=== PATIENT | female | born 1980 | race Caucasian/White ===

== ENCOUNTER 2020-07-31 10:50 | Outpatient (CLI) | payer OTHER, SELFPAY | END 2020-07-31 10:51 | disposition home or self-care (01) | LOC: ANHCOVIDVC 10:50 | PROVIDERS: PCP Family Medicine | DX: Z23 Encounter for immunization (principal) | CPT/HCPCS: 0001A; 91300 ==

== ENCOUNTER 2020-08-21 10:48 | Outpatient (CLI) | payer OTHER, SELFPAY | END 2020-08-21 10:49 | disposition home or self-care (01) | LOC: ANHCOVIDVC 10:48 | PROVIDERS: PCP Family Medicine | DX: Z23 Encounter for immunization (principal) | CPT/HCPCS: 0002A; 91300 ==

== ENCOUNTER 2020-10-29 10:33 | Emergency (ER) | payer OTHER, SELFPAY ==
[2020-10-29] VITALS (23 sets, daily range): BP systolic 102–123; BP diastolic 69–85; PULSE 74–98; RESP 12–20; TEMP 36.2; O2SAT 96–100
--- NOTE | ~2020-10-29 | XR_ITS ---
EXAMINATION: XR chest 2V EXAM DATE: 10/29/2020 11:58 INDICATION: Chest pain and shortness of breath. TECHNIQUE: Frontal and lateral projections of the chest obtained and reviewed. Comparison is made to prior examination from 07/24/2015. FINDINGS: The lungs are clear. There are no pleural effusions. The cardiomediastinal silhouette is within normal limits. There is no pneumothorax suspected. The bones and soft tissues are unremarkab le. IMPRESSION: No acute cardiopulmonary findings. Reviewed, dictated and finalized at location B.
--- NOTE | 2020-10-29 10:38 | ECG_ITS ---
Measurements Intervals [place] Rate: 88 P: 30 IN: 158 QRS: 21 QRSD: 85 T: 47 QT: 354 QTc: 428 Interpretive Statements SINUS RHYTHM NORMAL ECG Electronically Signed On 10-29-2020 15:53:45 CDT by Cristofer Casas D.O.
[2020-10-29 11:06] LABS: Basophils Percent Auto 0.4 % (0.2-1.2); Eosinophils Absolute Auto 0.3 K/mm3 (0-0.3); Eosinophils Percent Auto 3.1 % (0-4.4); Hematocrit 44.1 % (37.0-47.0); Hemoglobin 15.1 g/dL (12.0-15.0); Immature Granulocyte Absolute 0.01 K/mm3 (0.00-0.031); Immature Granulocyte Percent A 0.1 % (0-0.5); Lymphocytes Absolute Auto 2.82 K/mm3 (0.9-3.2); Mean Corpuscular HGB Conc 34.2 g/dl (32-36); Mean Corpuscular Hemoglobin 29.4 pg (26-34); Mean Platelet Volume 9.5 fl (7.4-10.4); Monocytes Absolute Auto 0.8 K/mm3 (0.1-0.6); Monocytes Percent Auto 8.3 % (2.6-8.5); Neutrophils Absolute Auto 5.5 K/mm3 (1.3-6.7); Neutrophils Percent Auto 58.1 % (45.5-73.1); Platelet Count Result 384 k/mm3 (150-375); Red Blood Count 5.13 M/mm3 (4.2-5.4); Red Cell Distribution Width 12.4 % (11.5-14.5); White Blood Count 9.4 K/mm3 (4.5-10.0)
[2020-10-29 11:19] LABS: Anion Gap 7 mmol/L (8-16); Blood Urea Nitrogen 14 mg/dL (7-17); Calcium 9.5 mg/dL (8.4-10.2); Carbon Dioxide 29 mmol/L (22-30); Chloride 102 mmol/L (98-107); Estimated CRCL calculation 94 ml/min; Estimated Glomerular Filt Rate > 60; Glucose 109 mg/dL (65-105); Potassium 4.1 mmol/L (3.4-5.0); Sodium 138 mmol/L (137-145)
[2020-10-29 11:20] LABS: Prothrombin Time 13.3 Seconds (11.1-14.7)
[2020-10-29 11:21] LABS: Partial Thromboplastin Time 34.9 SECONDS (22.3-36.8)
[2020-10-29 11:31] LABS: Troponin I < 0.012 ng/mL (0.000-0.034)
[2020-10-29] MEDS: ASPIRIN 81 MG CHEWABLE TABLET 324 MG PO (12:07)
[2020-10-29 12:51] LABS: NT Pro B Type Natriuretic Pept < 11 pg/mL (5-100)
[2020-10-29 14:02] LABS: Troponin I < 0.012 ng/mL (0.000-0.034)
--- NOTE | 2020-10-29 14:21 | ED.SOB ---
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 for which she is seen at [facility] Because of this she has frequent issues with muscle twitching and discomfort Last night she had an episode somewhat more severe than she generally has and then this morning she had some chest heaviness and tightness which she does not usually have She effectively has no cardiac risk factors otherwise may have high triglycerides does not have high blood pressure does not smoke does not have diabetes Her discomfort is right-sided, aggravated by palpation and movement and deep breathing, does not radiate, and has been there for hours Related Data Home Medications Medication Instructions Recorded Confirmed pregabalin 100 mg capsule 100 mg PO QID cap 03/06/20 08/15/20 prednisone 50 mg tablet 50 mg PO DAILY 07/07/20 08/15/20 Allergies Allergy/AdvReac Type Severity Reaction Status Date / Time erythromycin base Allergy Unknown Rash Verified 08/11/20 08:33 Review of Systems Review of Systems: All systems reviewed & are unremarkable except as noted in HPI and below Constitutional: Constitutional: Reports no additional constitutional complaints, Denies chills, Denies fever(s) and Denies headache(s) Eyes: Eyes: Reports no additional eye complaints and Denies change in vision ENT: Denies headache(s) and Denies sore throat Cardiovascular: Cardiovascular: Reports chest pain, Denies radiating jaw, neck or arm pain and Denies dyspnea Respiratory: Respiratory: Denies cough and Denies dyspnea Gastrointestinal: Gastrointestinal: Denies abdominal pain, Denies diarrhea and Denies vomiting Genitourinary: Genitourinary: Denies urinary frequency and Denies dysuria Musculoskeletal: Musculoskeletal: Reports myalgias, Denies deformity, Denies arthralgias, Denies joint swelling, Reports muscle cramps and Denies numbness Integumentary/Breasts: Skin/Breast: Denies rash and Denies wounds Neurologic: Denies headache(s), Denies focal weakness and Denies numbness Psychiatric: Psychiatric: Reports no additional psychiatric complaints Endocrine: Endocrine: Reports no additional endocrine complaints Hematologic/Lymphatic: Hematologic/Lymphatic: Reports no additional hematologic/lymphatic complaints Allergic/Immunologic: Allergic/Immunologic: Reports no additional allergic/immunologic complaints [facility] Past Medical History Medical History IBS (irritable bowel syndrome) Idiopathic small fiber peripheral neuropathy Long-term current use of steroids MDD (major depressive disorder) Myopathy Palpitations Surgical History Surgical History H/O cervical spine surgery H/O colonoscopy H/O: Family History Family History Mother Hypertension Asthma Sibling Asthma Grandparent Carcinoma of colon Family history of malignant neoplasm of ovary Father Family history of rheumatoid arthritis Social History Social History (Updated 08/11/20 @ 08:35 by Alla Rucker) Social History: Smoking status: Never smoker Second hand tobacco smoke exposure: No Alcohol intake: former Substance use: never Substance use type: does not use Additional living arrangements comments: Pt and her daughter live together. Gender identity (if verbalized by the patient): Female Exam Const: General: cooperative, no acute distress and alert Orientation/consciousness: patient oriented x3 (alert) HENMT: Head: normal to inspection, normocephalic and atraumatic Ears: external ears meghan
== END 2020-10-29 15:01 | disposition home or self-care (01) ==
PROVIDERS: Emergency Medicine; Emergency Provider Emergency Medicine; PCP Family Medicine
DX: R07.89 Other chest pain (principal); K58.9 Irritable bowel syndrome, unspecified; G60.8 Other hereditary and idiopathic neuropathies; E88.49 Other mitochondrial metabolism disorders
CPT/HCPCS: 36415; 71046; 80048; 83880; 84484; 85025; 85610; 85730; 93005; 99284; A9270

== ENCOUNTER 2021-11-25 19:14 | Emergency (ER) | payer OTHER, SELFPAY ==
[2021-11-25 19:21] VITALS: BP 82/63; PULSE 101; RESP 12; TEMP 36.5; O2SAT 100
--- NOTE | 2021-11-25 19:25 | ED.URI ---
HPI - URI/Sore Throat General Chief Complaint: Upper Respiratory Infection Stated Complaint: fatigued, body aches Time Seen by Provider: 11/25/21 19:30 Source: patient and RN notes reviewed Mode of arrival: ambulatory Limitations: no limitations History of Present Illness HPI Narrative: 41-year-old female presents with concern for fatigue, increased body aches that started on Monday. She reports she has an atrial septal defect and a mitochondrial defect so she has typical aches and pains for which she sees pain management. She reports she is having worsening pain however she is most concerned of her fatigue. Reports she has been falling asleep at work. She denies nasal congestion, rhinorrhea, sore throat, cough, headache. She denies nausea vomiting or diarrhea. She reports she has been drinking plenty of water and is urinating normally. She reports she took 2 COVID tests which were negative. MD elicited complaint: other (Fatigue) Related Data Home Medications Medication Instructions Recorded Confirmed pregabalin 100 mg capsule (Lyrica) 100 mg PO QID 03/06/20 08/15/20 naltrexone 11/25/21 riboflavin (vitamin B2) 11/25/21 Allergies Allergy/AdvReac Type Severity Reaction Status Date / Time erythromycin base Allergy Unknown Rash Verified 08/11/20 08:33 Review of Systems Review of Systems: CONSTITUTIONAL: Reports malaise, fatigue. Denies chills, sweats, or fever. EYES: Denies visual changes, redness, or discharge. ENT: Denies rhinorrhea, congestion, sinus pain, otalgia and sore throat. CARDIOVASCULAR: Denies chest pain, palpitations, or edema. RESPIRATORY: Denies cough. Denies dyspnea. GASTROINTESTINAL: Denies abdominal pain, nausea, vomiting, diarrhea SKIN: Denies rash or itching. MUSCULOSKELETAL: Reports myalgia. NEUROLOGIC: Denies headache. All systems reviewed & are unremarkable except as noted in HPI and below PMFSH Past Medical History Medical History IBS (irritable bowel syndrome) Idiopathic small fiber peripheral neuropathy Long-term current use of steroids MDD (major depressive disorder) Myopathy Palpitations Surgical History Surgical History H/O cervical spine surgery H/O colonoscopy H/O: Family History Family History Mother Hypertension Asthma Sibling Asthma Grandparent Carcinoma of colon Family history of malignant neoplasm of ovary Father Family history of rheumatoid arthritis Social History Social History (Updated 08/11/20 @ 08:35 by Alla Rucker) Social History: Smoking status: Never smoker Second hand tobacco smoke exposure: No Alcohol intake: former Alcohol use details: rarely Substance use: never Substance use type: does not use Additional living arrangements comments: Pt and her daughter live together. Gender identity (if verbalized by the patient): Female Sexual Orientation (if Verbalized by the Patient): Straight or Heterosexual Comments At time of signature, agree with nursing past medical, surgical, social and family history. There is no relevant family history pertinent to the presenting complaint Exam Narrative: GENERAL: Nontoxic appearing and in no acute distress. HEAD: Normocephalic EYES: PERRLA, conjunctivae clear ENT: Nares clear. Mucous membranes moist. NECK: Supple. No lymphadenopathy CHEST: Clear to auscultation, breath sounds equal. No wheezing, rhonchi, rales, or stridor. No respiratory distress, speaks in full sentences. HEART: Fast rate and regular rhythm. No murmur heard. SKIN: Warm, dry, no rash. NEURO: Alert and oriented x3. PSYCH: Normal mood and affect Course Course Emergency Course: Patient is aware of, understands and agrees to be seen in the emergency department. EMS offered, patient refused, patient agrees to proceed directly to the emerg
[2021-11-25 19:26] VITALS: BP 82/63; PULSE 101; RESP 12; TEMP 36.5; O2SAT 100
== END 2021-11-25 19:53 | disposition short-term general hospital (02) ==
PROVIDERS: Emergency Provider Nurse Practitioner
DX: I95.9 Hypotension, unspecified (principal); G62.9 Polyneuropathy, unspecified
CPT/HCPCS: 99212; G0463

== ENCOUNTER 2021-11-25 20:08 | Emergency (ER) | payer OTHER, SELFPAY ==
[2021-11-25] VITALS (11 sets, daily range): BP systolic 111–128; BP diastolic 65–84; PULSE 81–94; RESP 12–20; TEMP 36.6; O2SAT 95–100
[2021-11-25] MEDS: KETOROLAC 30 MG/ML VIAL (*BKC) IV PUSH (21:02)
[2021-11-25 21:08] LABS: Basophils Percent Auto 0.3 % (0.2-1.2); Eosinophils Absolute Auto 0.4 K/mm3 (0-0.3); Eosinophils Percent Auto 3.4 % (0-4.4); Hematocrit 39.2 % (37.0-47.0); Hemoglobin 13.3 g/dL (12.0-15.0); Immature Granulocyte Absolute 0.03 K/mm3 (0.00-0.031); Immature Granulocyte Percent A 0.2 % (0-0.5); Lymphocytes Absolute Auto 3.92 K/mm3 (0.9-3.2); Lymphocytes Percent Auto 32.3 % (18.3-44.2); Mean Corpuscular HGB Conc 33.9 g/dl (32-36); Mean Corpuscular Volume 88.3 fl (80-100); Mean Platelet Volume 9.6 fl (7.4-10.4); Monocytes Percent Auto 8.1 % (2.6-8.5); Neutrophils Absolute Auto 6.8 K/mm3 (1.3-6.7); Neutrophils Percent Auto 55.7 % (45.5-73.1); Platelet Count Result 338 k/mm3 (150-375); Red Blood Count 4.44 M/mm3 (4.2-5.4); Red Cell Distribution Width 13.2 % (11.5-14.5); White Blood Count 12.2 K/mm3 (4.5-10.0)
[2021-11-25 21:31] LABS: Alanine Aminotransferase 16 U/L (6-35); Albumin Level 4.1 g/dL (3.5-5.1); Alkaline Phosphatase 99 U/L (38-126); Anion Gap 6 mmol/L (8-16); Aspartate Amino Transferase 23 U/L (14-36); Bilirubin,Total 0.2 mg/dL (0.2-1.3); Blood Urea Nitrogen 16 mg/dL (7-17); Calcium 8.7 mg/dL (8.4-10.2); Carbon Dioxide 28 mmol/L (22-30); Chloride 102 mmol/L (98-107); Creatine Kinase 71 U/L (30-135); Estimated CRCL calculation 83 ml/min; Estimated Glomerular Filt Rate > 60; Glucose 94 mg/dL (65-110); Potassium 3.9 mmol/L (3.4-5.0); Sodium 136 mmol/L (137-145)
[2021-11-25 21:37] LABS: CRP 1.2 mg/dL (<1.0)
[2021-11-25 21:55] LABS: Add Urine Microscopic? YES; Appearance Urine Slightly Cloudy (Clear); Bilirubin Urine Negative (Negative); Blood Urine Negative (Negative); Color Urine Yellow (Yellow); Glucose Urine UA Negative (Negative); Ketones Urine Negative (Negative); Leukocyte Esterase Ur Negative LEU/UL (Negative); Nitrate Urine Negative (Negative); Protein Urine Negative (Negative)
[2021-11-25 21:57] LABS: Bacteria Urine Trace /hpf; Mucus Urine Rare /lpf; RBC Urine 0-2 /hpf (0-2); Squamous Epithelial Cell Urine Moderate /hpf (Few); WBC Urine 0-3 /hpf
--- NOTE | 2021-11-25 22:23 | ED.WEAKNESS ---
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 Patient states that for past few days she feels as though she has no energy and has been dragging herself. She denies any fever or chills. No history of nausea, vomiting or abdominal pain. She also states that she checked for COVID x2 at home and both her tests were negative Complaint: generalized weakness Onset (ago): week(s) (1) Location: generalized Severity: moderate Associated symptoms: denies other symptoms Related Data Home Medications Medication Instructions Recorded Confirmed pregabalin 100 mg capsule (Lyrica) 100 mg PO QID 03/06/20 08/15/20 naltrexone 11/25/21 riboflavin (vitamin B2) 11/25/21 Allergies Allergy/AdvReac Type Severity Reaction Status Date / Time erythromycin base Allergy Unknown Rash Verified 11/25/21 20:58 Review of Systems Review of Systems: All systems reviewed & are unremarkable except as noted in HPI and below Constitutional: Constitutional: Reports no additional constitutional complaints Eyes: Eyes: Reports no additional eye complaints ENT: Reports system reviewed and no additional complaints, except as documented Cardiovascular: Cardiovascular: Reports no additional cardiovascular complaints Respiratory: Respiratory: Reports no additional respiratory complaints Gastrointestinal: Gastrointestinal: Reports no additional gastrointestinal complaints Musculoskeletal: Musculoskeletal: Reports no additional musculoskeletal complaints Neurologic: Reports system reviewed and no additional complaints, except as documented Psychiatric: Psychiatric: Reports no additional psychiatric complaints Endocrine: Endocrine: Reports no additional endocrine complaints [facility] Past Medical History Medical History IBS (irritable bowel syndrome) Idiopathic small fiber peripheral neuropathy Long-term current use of steroids MDD (major depressive disorder) Myopathy Palpitations Surgical History Surgical History H/O cervical spine surgery H/O colonoscopy H/O: Family History Family History Mother Hypertension Asthma Sibling Asthma Grandparent Carcinoma of colon Family history of malignant neoplasm of ovary Father Family history of rheumatoid arthritis Social History Social History Social History: Smoking status: Never smoker Second hand tobacco smoke exposure: No Alcohol intake: former Alcohol use details: rarely Substance use: never Substance use type: does not use Additional living arrangements comments: Pt and her daughter live together. Gender identity (if verbalized by the patient): Female Sexual Orientation (if Verbalized by the Patient): Straight or Heterosexual Exam Narrative: GENERAL: Well-appearing, well-nourished, and in no acute distress. HEAD: Normocephalic, atraumatic. EYES: PERRLA and EOMI.. NECK: Supple. CHEST: Clear to auscultation. No respiratory distress. HEART: Regular rate and rhythm. No murmur heard. Normal peripheral pulses. ABDOMEN: Soft, nontender, nondistended, normal active bowel sounds. EXTREMITIES: Normal range of motion. No edema. SKIN: Warm, dry, no rash. NEURO: No focal deficits. Alert and oriented x3. PSYCH: Normal mood and affect. Course Course Emergency Course: Patient states that she is feeling slightly better informed her about her lab work. Advised her to continue home medications, follow
== END 2021-11-25 22:44 | disposition home or self-care (01) ==
PROVIDERS: Emergency Provider Family Medicine; PCP Nurse Practitioner Family
DX: R53.1 Weakness (principal); E88.40 Mitochondrial metabolism disorder, unspecified; K58.9 Irritable bowel syndrome, unspecified; G60.8 Other hereditary and idiopathic neuropathies; G72.9 Myopathy, unspecified
CPT/HCPCS: 36415; 80053; 81001; 82550; 85025; 86140; 96374; 99284; J1885

== ENCOUNTER 2023-10-02 15:45 | Outpatient (RCR) | payer OTHER, SELFPAY ==
--- NOTE | 2023-07-10 14:35 | OPREHPOC ---
Outpatient Therapy Plan of Care This is a Multidisciplinary Plan of Care that may contain components documented by all disciplines (PT, OT, and ST.) PT Problem 1 PT Problem #1 Knowledge Deficit PT Goal 1 Goal 1. Patient will perform independent HEP Target Visit 6 PT Problem 2 PT Problem #2 Impaired Functional ADLs PT Goal 1 Goal 1. Patient will report at least 3 BM per week 2. Patient will report no limitation with ADLs due to constipation/pain Target Visit 6 PT Problem 3 PT Problem #3 Impaired Coordination PT Goal 1 Goal 1. Patient able to fully contract and relax pelvic floor musculature to decrease difficulty with defecation Target Visit 6
--- NOTE | 2023-07-10 14:35 | PTOPEVAL1 ---
Assessment and note entered by Kely Morales DPT Evaluation Information Assessment Status Evaluation Subjective Information Pt reports a history of IBS with constipation. Has tried meds in the past which cause diarrhea. Has recently had anal manometry. Voids 6-7 times a day and maybe 1 time at night. Denies incontinence. Can hold urge to void 30-45 minutes, no pain. Recently BM once a week, pain some of the time. Denies fecal incontinence. Sometimes gets abdominal/pelvic pain which is worse if she is more constipated. Highest pain 7-8/10 and lowest 0 /10. Will wait 5 minutes before getting off the toilet if she cannot have a BM. Pt has been 1 time, delivery. Uterine ablation and tubal ligation, also has been diagnosed with a mitochondrial disease which causes weakness. History of bladder infections but has not had one recently. Will get nausea and vomiting if going too long between BM. Sometimes will need to avoid activities at home due to pain. Diet- water mostly, 1 cup of coffee a day. States she eats a wide variety of foods and eats breakfast, lunch, dinner, and snacks. Patient goal: be able to go to the bathroom. Reported Pain Level Pain Score 2: Self Report Assessment PT Clinical Summary The patient is presenting to skilled therapy with a diagnosis of dyssynergic defecation and a history of IBS with constipation. She presents with increased pelvic floor muscle tone and core weakness which are contributing to her pain and difficulty with BM. She will benefit from skilled therapy to address these impairments in order to reduce pain and improve overall function. Plan of Care Interventions Electrical Stimulation,Hot Pack/Cold Pack,Manual Therapy,Neuro Re-education,Patient/Caregiver Education,Therapeutic Activities,Therapeutic Exercise PT Services Indicated Yes Treatment Frequency and 1 time a week for 6 weeks Duration These treatments will address the objective and functional deficits as defined above. The patient will be advanced safely and appropriately in order for the patient to progress towards his/her prior level of function. Additional exercises will be introduced and as well as a comprehensive home exercise program upon discharge, if needed, ?to ensure carryover of functional gains achieved in the clinic.
--- NOTE | 2023-08-02 09:04 | PCPTNOTE ---
Patient called to cancel appointment 08/02/23 due to a sick child.
--- NOTE | 2023-08-18 11:44 | PCPTNOTE ---
Patient's appointment on 08/18/23 was cancelled due to therapist scheduling conflict.
--- NOTE | 2023-09-05 15:40 | OPREHPOC ---
Outpatient Therapy Plan of Care This is a Multidisciplinary Plan of Care that may contain components documented by all disciplines (PT, OT, and ST.) PT Problem 1 PT Problem #1 Knowledge Deficit PT Goal 1 Goal 1. Patient will perform independent HEP Target Visit 6 Progress Met PT Problem 2 PT Problem #2 Impaired Functional ADLs PT Goal 1 Goal 1. Patient will report at least 3 BM per week 2. Patient will report no limitation with ADLs due to constipation/pain Target Visit 9 Progress Partially Met Comment 1. improved to 2 2. met PT Problem 3 PT Problem #3 Impaired Coordination PT Goal 1 Goal 1. Patient able to fully contract and relax pelvic floor musculature to decrease difficulty with defecation Target Visit 9 Progress Partially Met Comment 1. improved ability, not met
--- NOTE | 2023-09-05 15:42 | PTOPPROG ---
Assessment and note entered by Kely Morales DPT Evaluation Information Assessment Status Progress Subjective Information Overall has been feeling better with therapy. Typically is having a normal bowel movement within a day or two of each therapy session. No nausea or vomiting due to constipation in the last couple weeks. Highest pain in last week 4/10 and lowest 1/10. In the last two weeks has had a BM 2 times a week. Taking lubiprostone. Assessment PT Clinical Summary The patient has made good progress in therapy. She reports decreased pain overall to 4/10 highest and has had 2 BM per week in the last two weeks. No nausea or vomiting due to symptoms. She demonstrates improved hip/core strength and pelvic floor muscle tone. Due to her progress but continued pain, pt will benefit from further therapy to reduce pain and improve function. Plan of Care Interventions Electrical Stimulation,Hot Pack/Cold Pack,Manual Therapy,Neuro Re-education,Patient/Caregiver Education,Therapeutic Activities,Therapeutic Exercise PT Services Indicated Yes Treatment Frequency and 1 visit every other week x 3 visits Duration These treatments will address the objective and functional deficits as defined above. The patient will be advanced safely and appropriately in order for the patient to progress towards his/her prior level of function. Additional exercises will be introduced and as well as a comprehensive home exercise program upon discharge, if needed, ?to ensure carryover of functional gains achieved in the clinic. This treatment plan has been reviewed and agreement upon by the patient.
--- NOTE | 2023-10-16 14:12 | PCPTNOTE ---
This treatment is being continued on visit number [id number]. Please see documentation on both accounts to view progress. Completed interventions, outcomes, and problems have been marked as Inactive to facilitate the copying of the Care plan routine for recurring accounts.
== END 2023-10-08 23:59 | disposition home or self-care (01) ==
LOC: ANHGOSHPT 15:45
PROVIDERS: PCP Nurse Practitioner Family
DX: K59.02 Outlet dysfunction constipation (principal)
CPT/HCPCS: 97110; 97112; 97140; 97162; 97530

== ENCOUNTER 2023-10-17 13:06 | Outpatient (RCR) | payer OTHER, SELFPAY ==
--- NOTE | 2023-10-16 14:13 | PCPTNOTE ---
The treatment documented on this account is a continuation of the treatment documented on visit number [id number]. Please see documentation on both accounts to view progress. The Plan of Care has been transitioned and updated within the new V#. I have addressed and agree with the discipline specific Problems, Interventions, and Goals for the current certification period. Completed interventions, outcomes, and problems have been marked as Inactive to facilitate the copying of the Care plan routine for recurring accounts.
--- NOTE | 2023-10-17 13:40 | OPREHPOC ---
Outpatient Therapy Plan of Care This is a Multidisciplinary Plan of Care that may contain components documented by all disciplines (PT, OT, and ST.) PT Problem 1 PT Problem #1 Knowledge Deficit PT Goal 1 Goal 1. Patient will perform independent HEP Target Visit 6 Progress Met PT Problem 2 PT Problem #2 Impaired Functional ADLs PT Goal 1 Goal 1. Patient will report at least 3 BM per week 2. Patient will report no limitation with ADLs due to constipation/pain [ End ] Target Visit 9 Progress Partially Met PT Problem 3 PT Problem #3 Impaired Coordination PT Goal 1 Goal 1. Patient able to fully contract and relax pelvic floor musculature to decrease difficulty with defecation [ End ] Target Visit 9
--- NOTE | 2023-10-17 13:41 | PTOPDC ---
Assessment and note entered by Kely Morales DPT Evaluation Information Assessment Status Discharge Subjective Information Pt reports overall she is feeling continued improvements with therapy and has been keeping up with her exercises. Highest pain in the last 1-2 weeks 2/10 and lowest 0/10. BM on average every 3 days. Reported Pain Level Pain Score 0: Self Report Assessment PT Clinical Summary The patient has continued to make good progress in therapy and reports minimal abdominal pain and BM on average every 3 days. Due to her progress, plan to discharge at this time. She has been educated to continue HEP and follow up with MD and/or PT as needed. Plan of Care PT Services Indicated No
== END 2023-10-18 10:30 | disposition home or self-care (01) ==
LOC: ANHGOSHPT 13:06
PROVIDERS: PCP Nurse Practitioner Family
DX: K59.02 Outlet dysfunction constipation (principal)
CPT/HCPCS: 97140; 97530

== ENCOUNTER 2024-01-04 08:00 | Outpatient (RCR) | payer OTHER, SELFPAY ==
--- NOTE | 2023-11-16 09:05 | PTOPEVAL1 ---
Assessment and note entered by Etienne Robles Evaluation Information Assessment Status Evaluation Diagnosis myalgia, multiple joint pain Onset 10/12/23 Subjective Information Pt. reports that she was diagnosed with mitochondrial deficiency about 5 years ago. She reports since her diagnosis she has had daily muscle pain through all joints of her body. She reports that her pain is constant in her backs and legs. She reports that she has done PT in the past, as well as multiple forms of exercise to address her pain. She states that in the past with therapy she fatigued very easily and would take 2 days to recover from her treatment. She reports that she does take Lyrica 4x/day for pain, as well as Tramadol 3-4x/day. She reports that her pain intensity will fluctuate by the hour. Pt . reports that she can be on her feet for about 10 minute before having to sit. She reports that she does not go to the store and has everything delivered due to her inability to stand for long durations. She states that she does drive and does quick shopping trips. She states that she avoids any recreational activities that require long periods of standing. She states that she will occasionally utilize a cane when pain and fatigue are intense. She has recently noticed difficulty holding her arms overhead to dry her hair and has to lay on her bed to dry her hair to avoid fatigue in the arms. She states that her goal for PT is to develop a program that will assist with maintaining a good quality of life and to be on her feet longer. Reported Pain Level Pain Score 3: Self Report Assessment PT Clinical Summary Pt. is a 43 year old female who enters the clinic with hx of polymyalgia and generalized weakness. She currently presents with impaired postural awareness, impaired endurance, impaired balance and functional decline. Continued skilled PT is indicated in order to improve these areas to allow for improve efficiency with IADL performance. Plan of Care Interventions Electrical Stimulation,Gait Training,Hot Pack/Cold Pack,Manual Therapy,Neuro Re-education, Therapeutic Activities,Therapeutic Exercise PT Services Indicated Yes Treatment Frequency and 1x/week x 8 visits Duration These treatments will address the objective and functional deficits as defined abo
--- NOTE | 2023-11-16 09:06 | OPREHPOC ---
Outpatient Therapy Plan of Care This is a Multidisciplinary Plan of Care that may contain components documented by all disciplines (PT, OT, and ST.) PT Problem 1 PT Problem #1 Knowledge Deficit PT Goal 1 Goal Pt. will be independent with a HEP addressing flexibility and core stability Target Visit 2 PT Problem 2 PT Problem #2 Impaired Strength PT Goal 1 Goal Pt. will maintain SLS on right and left for 1 minute without LOB Pt. will present with 4+/5 gross proximal l.e. strength Target Visit 8 PT Problem 3 PT Problem #3 Impaired Gait PT Goal 1 Goal Pt. will complete 6 minute walk test with 1400' indicating improved gait efficiency Target Visit 8 PT Problem 4 PT Problem #4 Impaired Functional Mobil PT Goal 1 Goal Pt. will report being able to participate in in grocery shopping and walking for 20 minutes for improved IADL efficiency. Target Visit 8
--- NOTE | 2023-11-29 09:13 | PCPTNOTE ---
Patient canceled treatment this date due to being out of town.
--- NOTE | 2023-12-27 07:59 | PCPTNOTE ---
Patient canceled due to being on a family vacation.
--- NOTE | 2024-01-04 08:55 | PTOPDC ---
Assessment and note entered by Louie Fishman, PT, DPT Evaluation Information Assessment Status Discharge Diagnosis myalgia, multiple joint pain ICD-10 Condition Codes (PT) Weakness R53.1 Onset 10/12/23 Subjective Information Pt states she is having a really bad pain day today and has to ambulate with a cane. Pt states she has added a lot of stretches to her daily routine and to help keep her mobile and the pain manageable. She states she has also learned how to pace her daily activity. Reported Pain Level Pain Score 7: Self Report Assessment PT Clinical Summary Pt states she feels like she has improved during this session of therapy. She states she has a routine for each region of her body to use as needed for mobility and pain management. Pt states she feels comfortable with her therapy outcomes and would not like to continue at this time. Her HEP was updated and she will be d/c'ed at this time per her request.
== END 2024-01-04 10:34 | disposition home or self-care (01) ==
LOC: ANHGOSHPT 08:00
PROVIDERS: PCP Nurse Practitioner Family
DX: M79.10 Myalgia, unspecified site (principal); M25.50 Pain in unspecified joint; G62.9 Polyneuropathy, unspecified; E88.49 Other mitochondrial metabolism disorders
CPT/HCPCS: 97110; 97112; 97140; 97161; 97530